=== PATIENT | female | born 1985 | race Two or more races ===

== ENCOUNTER → 2017-09-18 | Outpatient (CLI) | payer OTHER ==
[~2017-09-18] MED LIST: HYDACE5 PO; IBUP800 PO; NAPR375 PO; OXYACE5T PO
[2017-09-20 11:58] LABS: HPV Genotype 16 Not Detected (NOTDET); HPV Genotype 18 Not Detected (NOTDET)
[2017-09-27 12:32] LABS: HPV High Risk Other Not Detected (NOTDET)
== END | disposition home or self-care (01) ==
LOC: LAB 16:06
PROVIDERS: Obstetrics & Gynecology
DX: Z01.419 Encounter for gynecological examination (general) (routine) without abnormal findings (principal)
CPT/HCPCS: 87624; G0123

== ENCOUNTER 2018-06-25 12:19 | Emergency (ER) | payer OTHER ==
[~2018-06-25] VITALS: Ht 172.7 cm; Wt 81.7 kg
[2018-06-25 12:49] LABS: BASOPHILS ABSOLUTE AUTO 0.02 K/mm3 (0.00-0.23); BASOPHILS PERCENT AUTO 0 % (0-2); EOSINOPHILS ABSOLUTE AUTO 0.09 K/mm3 (0.00-0.68); EOSINOPHILS PERCENT AUTO 1 % (0-6); Hematocrit 39.5 % (33.0-51.0); Hemoglobin 13.4 g/dL (11.5-16.0); IMMATURE GRAN ABSOLUTE AUTO 0.01 K/mm3 (0.00-0.10); IMMATURE GRAN PERCENT AUTO 0 % (0-1); LYMPHOCYTES ABSOLUTE AUTO 2.72 K/mm3 (0.84-5.20); LYMPHOCYTES PERCENT AUTO 36 % (21-46); MONOCYTES ABSOLUTE AUTO 0.54 K/mm3 (0.16-1.47); MONOCYTES PERCENT AUTO 7 % (4-13); Mean Corpuscular HGB Conc 33.9 g/dL (31.5-36.5); Mean Corpuscular Volume 91 fL (80-100); Mean Platelet Volume 9.6 fL (9.1-12.4); NEUTROPHILS ABSOLUTE AUTO 4.23 K/mm3 (1.96-9.15); NEUTROPHILS PERCENT AUTO 56 % (41-73); Platelet Count 287 K/mm3 (150-400); RDW Coefficient Variation 11.9 % (11.7-14.2); RDW Standard Deviation 39.7 fL (35.1-46.3); Red Blood Cell Count 4.32 M/mm3 (3.80-5.20); White Blood Cell Count 7.61 K/mm3 (4.00-11.30)
[2018-06-25 13:07] LABS: Alanine Aminotransfer (ALT/SGP 30 U/L (12-78); Albumin, Blood 3.6 g/dL (3.4-5.0); Alk Phos 77 U/L (50-136); Anion Gap 8 mmol/L (6-16); Aspartate Aminotrans (AST/SGOT 17 U/L (12-37); Bilirubin, Total 1.2 mg/dL (0.1-1.0); Blood Urea Nitrogen 20 mg/dL (8-24); Bun/Creatinine Ratio 27.9 (12.0-20.0); CO2, Blood 25 mmol/L (21-32); Calcium, Blood 8.3 mg/dL (8.5-10.1); Chloride, Blood 108 mmol/L (98-108); Creatinine, Blood 0.72 mg/dL (0.40-1.00); Globulin, Blood 3.6 g/dL (2.2-4.0); Glomerular Filtration Rate >60 (60-); Glucose, Blood 114 mg/dL (70-99); Potassium, Blood 3.6 mmol/L (3.5-5.5); Sodium, Blood 141 mmol/L (136-145); Total Protein, Blood 7.2 g/dL (6.4-8.2)
== END 2018-06-25 14:18 | disposition home or self-care (01) ==
LOC: ER 12:19
PROVIDERS: Physician Assistant
DX: M79.601 Pain in right arm (principal); M79.602 Pain in left arm; R53.1 Weakness; J02.9 Acute pharyngitis, unspecified
CPT/HCPCS: 36415; 70450; 80053; 85025; 87081; 87430; 96374; 99284-25; J1885; J7120

== ENCOUNTER 2020-01-25 15:07 | Emergency (ER) | payer OTHER ==
[~2020-01-25] VITALS: Ht 170.2 cm; Wt 92.5 kg
== END 2020-01-25 16:04 | disposition home or self-care (01) ==
LOC: ER 15:07
DX: S61.211A Laceration without foreign body of left index finger without damage to nail, initial encounter (principal); Z23 Encounter for immunization; W26.0XXA Contact with knife, initial encounter
CPT/HCPCS: 12001; 90471; 90714; 99282-25

== ENCOUNTER 2023-06-19 11:01 | Day surgery (SDC) | payer OTHER ==
[~2023-06-19] VITALS: Ht 170.2 cm; Wt 85.9 kg
--- NOTE | 2023-06-19 12:57 | NUR ---
06/19/23 Donaldo Winslow FLUIDS CHARTED UNDER HEMORRHOIDECTOMY PROCEDURE CHART D/T COLONOSCOPY PERFORMED RIGHT BEFORE HEMORRHOIDECTOMY.
[2023-06-19 13:56] VITALS: BP 125/83
--- NOTE | 2023-06-19 14:42 | NUR ---
06/19/23 1442 Sanket Carranza IV REMOVED INTACT. SITE WNL.
== END 2023-06-19 14:40 | disposition home or self-care (01) ==
LOC: ORSCSDS 11:01
PROVIDERS: Surgery
PROC: 06BY0ZC Excision of Hemorrhoidal Plexus, Open Approach (ICD-10-PCS; principal; 2023-06-19 12:30)
PROC: 0DJD8ZZ Inspection of Lower Intestinal Tract, Via Natural or Artificial Opening Endoscopic (ICD-10-PCS; principal; 2023-06-19 12:30)
DX: K62.5 Hemorrhage of anus and rectum (principal); K64.4 Residual hemorrhoidal skin tags; K64.8 Other hemorrhoids
CPT/HCPCS: 88304; J0171; J0461; J1100; J1885; J2001; J2250; J2405; J2704; J2795; J3010; J7120; Q9968